=== PATIENT | male | born 1995 | race Caucasian/White ===

== ENCOUNTER → 2021-02-14 | Outpatient (CLI) | payer OTHER ==
--- NOTE | 2021-02-14 09:59 | REP ---
INDICATION: SWELLING/MASS/LUMP OF ABD COMPARISON: None. TECHNIQUE: Real time B-mode ultrasound examination using linear high-frequency transducer. FINDINGS: Directed ultrasound examination to the right lower quadrant at the site of palpable mass demonstrates a subtle vague 13 x 10 x 16 mm hyperechoic focus in the subcutaneous tissue which may represent small lipoma. IMPRESSION: Vague poorly defined hyperechoic area as described above. Differential diagnosis includes but is not limited to small lipoma. <Electronically signed by Alberto Weber > 02/14/21 [id number]
== END ==
LOC: M RAD 09:31
PROVIDERS: ATTEND Physician Assistant
DX: R22.2 Localized swelling, mass and lump, trunk (principal)